=== PATIENT | female | born 1960 | race Caucasian/White ===

== ENCOUNTER → 2021-04-22 10:57 | Outpatient (BNVA) | payer OTHER, SELFPAY | PROVIDERS: PCP Internal Medicine; Visit Provider Orthopaedic Surgery | DX: M18.12 Unilateral primary osteoarthritis of first carpometacarpal joint, left hand (principal) | CPT/HCPCS: 20605; 99202 ==

== ENCOUNTER 2021-11-04 09:20 | Outpatient (REF) | payer OTHER, SELFPAY | END 2021-11-04 09:21 | disposition home or self-care (01) | LOC: HO.HOSX 09:20 | PROVIDERS: Visit Provider Orthopaedic Surgery | DX: Z13.89 Encounter for screening for other disorder (principal) ==

== ENCOUNTER 2021-11-24 08:38 | Outpatient (REF) | payer OTHER, SELFPAY ==
--- NOTE | ~2021-11-24 | XR_ITS ---
EXAMINATION: XR BILATERAL HANDS: 3 VIEWS EACH CLINICAL INFORMATION: Pain COMPARISON: None TECHNIQUE: PA, oblique and lateral views of each hand FINDINGS: No acute fracture or dislocation. Small marginal osteophytes present throughout the interphalangeal joints, more pronounced distally. Small marginal osteophytes throughout the metacarpophalangeal joints, most pronounced involving the first metacarpal phalangeal joint. Moderate marginal osteophytes of the first carpometacarpal joints bilaterally with accompanying joint space narrowing and subchondral sclerosis with subchondral cystic changes, more pronounced on the left. No erosive changes XR/XR hand LT min 3V IMPRESSION: No acute findings. No evidence of inflammatory arthropathy. Degenerative changes as described.
--- NOTE | ~2021-11-24 | XR_ITS ---
EXAMINATION: XR BILATERAL HANDS: 3 VIEWS EACH CLINICAL INFORMATION: Pain COMPARISON: None TECHNIQUE: PA, oblique and lateral views of each hand FINDINGS: No acute fracture or dislocation. Small marginal osteophytes present throughout the interphalangeal joints, more pronounced distally. Small marginal osteophytes throughout the metacarpophalangeal joints, most pronounced involving the first metacarpal phalangeal joint. Moderate marginal osteophytes of the first carpometacarpal joints bilaterally with accompanying joint space narrowing and subchondral sclerosis with subchondral cystic changes, more pronounced on the left. No erosive changes XR/XR hand RT min 3V IMPRESSION: No acute findings. No evidence of inflammatory arthropathy. Degenerative changes as described.
== END 2021-11-24 08:39 | disposition home or self-care (01) ==
LOC: HO.HOSX 08:38
PROVIDERS: Visit Provider Orthopaedic Surgery
DX: M18.0 Bilateral primary osteoarthritis of first carpometacarpal joints (principal); I48.91 Unspecified atrial fibrillation; Z79.01 Long term (current) use of anticoagulants
CPT/HCPCS: 73130; 99212

== ENCOUNTER 2022-01-16 13:46 | Outpatient (REF) | payer OTHER, SELFPAY ==
[2022-01-16 15:34] LABS: MANUAL DIFF FLAG NO
[2022-01-16 15:40] LABS: Basophils Absolute Auto 0.1 X10*3/uL (0.0-0.2); Basophils Percent Auto 0.8 % (0-2); Eosinophils Absolute Auto 0.3 X10*3/uL (0.0-0.4); Eosinophils Percent Auto 4.1 % (0-4); Hematocrit 36.8 % (37.0-47.0); Hemoglobin 12.3 g/dl (12.0-16.0); Imm Gran Abs Auto 0.02 X10*3/uL (0.00-0.03); Imm Gran Pct Auto 0.3 % (0.0-0.4); Lymphocytes Absolute Auto 1.1 X10*3/uL (1.2-4.9); Lymphocytes Percent Auto 13.9 % (20-40); Mean Corpuscular HGB Conc 33.4 g/dl (31.0-35.0); Mean Corpuscular Hemoglobin 28.1 pg (27.0-33.0); Mean Corpuscular Volume 84.2 fL (80.0-98.0); Monocytes Absolute Auto 0.5 X10*3/uL (0.1-1.2); Monocytes Percent Auto 5.9 % (2-11); Neutrophils Absolute Auto 5.8 x10*3/uL (2.0-8.3); Platelet Count 329 X10*3/uL (160-400); Red Blood Count 4.37 X10*6/uL (4.20-5.50); Red Cell Distribution Width 12.5 % (11.0-16.0); White Blood Count 7.8 X10*3/uL (4.8-10.8)
[2022-01-16 16:48] LABS: Influenza A PCR NEGATIVE (Negative); Influenza B PCR NEGATIVE (Negative); Resp Syncy Virus RNA Qual PCR NEGATIVE (Negative); SARS COV2 PCR INHOUSE NEGATIVE (Negative)
== END 2022-01-16 13:47 | disposition home or self-care (01) ==
LOC: HO.HMGCLDS 13:46
PROVIDERS: PCP Internal Medicine; Visit Provider Physician Assistant Medical
DX: Z20.822 Contact with and (suspected) exposure to COVID-19 (principal); R59.1 Generalized enlarged lymph nodes; R05.9 Cough, unspecified
CPT/HCPCS: 0241U; 36415; 85025